=== PATIENT | male | born 1960 | race Caucasian/White ===

== ENCOUNTER → 2016-11-13 | Outpatient (CLI) | payer BC ==
[~2016-11-13] MED LIST: HYDR200T5 PO; LEVO200T PO; SIMV20TA2 PO; WARF1TAB PO; WARF5TAB90 PO
== END | disposition home or self-care (01) ==
LOC: C.LABPVFM 07:38
PROVIDERS: ATTEND Family Medicine
DX: E06.3 Autoimmune thyroiditis (principal)

== ENCOUNTER → 2016-12-02 | Outpatient (CLI) | payer BC ==
--- NOTE | 2016-12-02 10:27 | DIAGNOSTIC IMAGING REPORT ---
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 Right knee pain COMPARISON: None. DISCUSSION: There are mild osteoarthritic changes involving the medial joint compartment and patellofemoral joint. There are no acute fractures. There are no erosive or destructive changes. IMPRESSION: Mild degenerative changes most pronounced involving the medial joint compartment and patellofemoral joint. No fractures identified. Electronically signed by: Johnie Fish M.D. 12/02/2016 10:26 AM Dictated Date/Time: 12/02/2016 10:20 AM
[2016-12-02 12:28] LABS: BASO % 0.6 %; BASO ABS # 0.03 K/uL (0-0.2); COMPLETE YES; HEMATOCRIT 46.5 % (42-52); IG% 0.2 %; LYMPH % 24.6 %; LYMPH ABS # 1.24 K/uL (1.2-3.4); MEAN CELL VOLUME 93.6 fL (80-100); MEAN CORPUSCULAR HEMOGLOBIN 31.4 pg (25-34); MEAN CORPUSCULAR HGB CONC 33.5 g/dl (32-36); MEAN PLATELET VOLUME 10.3 fL (7.4-10.4); MONO % 9.3 %; NEUT % 62.3 %; PLATELET COUNT 190 K/uL (130-400); RED BLOOD COUNT 4.97 M/uL (4.7-6.1); WHITE BLOOD COUNT 5.05 K/uL (4.8-10.8)
[2016-12-02 12:33] LABS: ALT/SGPT 38 U/L (12-78); AST/SGOT 36 U/L (15-37)
[2016-12-02 12:35] LABS: ALKALINE PHOSPHATASE 81 U/L (45-117)
[2016-12-06 02:48] LABS: ANTI-CENTROMERE AB <1.0 NEG AI (<1.0 NEG); ANTI-SS-A <1.0 NEG AI (<1.0 NEG); ANTI-SS-B <1.0 NEG AI (<1.0 NEG); DNA ds CRITHIDIA NEGATIVE (NEGATIVE); MICROSOMAL AB 701 IU/ML (<9); Sm Antibody <1.0 NEG AI (<1.0 NEG)
== END | disposition home or self-care (01) ==
LOC: C.RAD1850 09:59
PROVIDERS: ATTEND Internal Medicine Rheumatology
DX: M25.561 Pain in right knee (principal); R76.8 Other specified abnormal immunological findings in serum; Z79.899 Other long term (current) drug therapy

== ENCOUNTER → 2017-05-19 | Outpatient (CLI) | payer BC ==
[2017-05-19 13:15] LABS: ALT/SGPT 35 U/L (12-78); AST/SGOT 27 U/L (15-37); BLOOD UREA NITROGEN 11 mg/dl (7-18); BUN/CREATININE RATIO 10.5 (10-20); CALCIUM 8.7 mg/dl (8.5-10.1); CARBON DIOXIDE 30 mmol/L (21-32); CHLORIDE 105 mmol/L (98-107); CREATININE 1.07 mg/dl (0.60-1.40); GLUCOSE 97 mg/dl (70-99); POTASSIUM 4.2 mmol/L (3.5-5.1); SODIUM 138 mmol/L (136-145)
[2017-05-19 13:27] LABS: ALKALINE PHOSPHATASE 84 U/L (45-117); CHOLESTEROL 134 mg/dl (0-200); CHOLESTEROL/HDL RATIO 2.4; HDL CHOLESTEROL 57 mg/dl; LDL CHOLESTEROL CALCULATED 55 mg/dl; TRIGLYCERIDES 108 mg/dl (0-150); VERY LOW DENSITY LIPOPROT CALC 22 mg/dl
== END | disposition home or self-care (01) ==
LOC: C.LABPVFM 08:26
PROVIDERS: ATTEND Family Medicine
DX: C20 Malignant neoplasm of rectum (principal); E06.3 Autoimmune thyroiditis; E03.9 Hypothyroidism, unspecified; G47.9 Sleep disorder, unspecified

== ENCOUNTER → 2017-10-21 | Outpatient (CLI) | payer OTHER ==
[2017-10-21 13:54] LABS: ALBUMIN 3.7 gm/dl (3.4-5.0); AST/SGOT 23 U/L (15-37); BLOOD UREA NITROGEN 15 mg/dl (7-18); CALCIUM 8.6 mg/dl (8.5-10.1); CARBON DIOXIDE 28 mmol/L (21-32); CREATININE 1.14 mg/dl (0.60-1.40); GLUCOSE 100 mg/dl (70-99); POTASSIUM 4.3 mmol/L (3.5-5.1); SODIUM 140 mmol/L (136-145)
[2017-10-21 14:04] LABS: ALKALINE PHOSPHATASE 86 U/L (45-117); ALT/SGPT 30 U/L (12-78); TOTAL PROTEIN 7.1 gm/dl (6.4-8.2)
== END | disposition home or self-care (01) ==
LOC: C.LABPVFM 07:10
PROVIDERS: ATTEND Family Medicine
DX: E06.3 Autoimmune thyroiditis (principal); Z79.899 Other long term (current) drug therapy; E03.9 Hypothyroidism, unspecified